=== PATIENT | male | born 1985 | race Caucasian/White ===

== ENCOUNTER 2016-07-14 08:42 | Emergency (ER) | payer SELFPAY ==
--- NOTE | ~2016-07-14 | ER ---
PATIENT'S NAME: RA CHRISTENSEN [facility] AGE: 30 Y [address] ROOM: [place] [id number] LOCATION: [facility] ADMIT DATE: 07/14/2016 ER/Outpatient Report DISCHARGE DATE: FAMILY PHYSICIAN: PHYSICIAN, NO ATTENDING PHYSICIAN: Zhang Thurman Time of Arrival: Time of Evaluation: Admission date and time documented in the medical record. I saw the patient at 0850 hours. CHIEF COMPLAINT: Cough, shortness of breath, and fever. HISTORY OF PRESENT ILLNESS: This patient is a 30-year-old male, who comes in with a 4 to 5-day history of increasing shortness of breath, fever, and congested productive cough. No chills or rigors. Sputum is yellowish. He has had some nausea with vomiting with coughing. Some diarrhea. No chest pain, abdominal pain, or back pain. No headache, eyes, ears, nose, or throat pain. No fall or trauma. No lightheadedness, dizziness, syncope, or near syncope. No joint or muscle swelling, redness, or pain. No skin eruptions or rash. No history of neurological changes, psychiatric issues, or endocrine problems. HOME MEDICATIONS: See attached medication list. ALLERGIES: CODEINE. SOCIAL HISTORY: The patient smokes a pack a day. Occasional intake of alcohol. SIGNIFICANT PAST MEDICAL HISTORY: 1. Herpes. 2. Tobacco abuse. 3. Manic depression. 4. Bronchitis. PAST SURGICAL HISTORY: Operations: None. REVIEW OF SYSTEMS: All systems reviewed by me are negative with the exception of those discussed in the History of the Present Illness. PATIENT'S NAME: RA CHRISTENSEN [facility] AGE: 30 Y [address] ROOM: [place] [id number] LOCATION: [facility] ADMIT DATE: 07/14/2016 ER/Outpatient Report DISCHARGE DATE: FAMILY PHYSICIAN: PHYSICIAN, NO ATTENDING PHYSICIAN: Zhang Thurman PHYSICAL EXAMINATION: VITAL SIGNS: Temperature 97.4, tympanic; pulse 80; respiratory rate 22; blood pressure 145/85; and O2 saturation on room air is 95%. HEENT: Head; normocephalic. Eyes; extraocular muscles intact. PERRL. Ears; clear TMs bilaterally. Nose; congested. Throat; clear. Mucous membranes moist. NECK: No nuchal rigidity. No thyromegaly or cervical lymphadenopathy. No tenderness. SPINE: Nontender. No deformity. LUNGS: Decreased breath sounds diffusely. Expiratory wheezes. Scattered rhonchi. HEART: Regular. Pulses are palpable. ABDOMEN: Soft, mildly obese, nondistended, and nontender. Good bowel tones. No organomegaly or abnormal mass palpable. No CVA tenderness. EXTREMITIES: Without peripheral edema, cyanosis, or deformity. NEUROLOGIC: Neurovascularly intact. SKIN: Clear. IMAGING STUDIES: Chest x-ray shows no acute infiltrate. There was a nodule present. We did do a CT scan of the chest that showed granulomatous calcified nodule. No evidence of tumor. He does have some airway changes consistent with pneumonia. CT scan was read by Radiology, as was the chest x-ray. LABORATORY DATA: White count is 14,800, 78 segs, 3 bands, 11 lymphs, 8 monos, hemoglobin is 15.8 with a hematocrit of 45.5, and platelet count was 200,000. EMERGENCY DEPARTMENT COURSE: I did give the patient 1 L normal saline IV in the emergency room. Gave him Rocephin 2 g IV in the emergency room. IMPRESSION: Pneumonia with productive cough, fever, and shortness of breath. PLAN: The patient dismissed to home. Observation. Activity as tolerated. Fluids, diet as tolerated. Z-Regulo take as directed. Mucinex D 600 mg 2 orally 2 times a day for 10 days. Albuterol oral inhaler 2 puffs 4 times a day. Follow up with personal physician in 7 to 10 days or sooner if needed. ZHANG THURMAN MD PATIENT'S NAME: RA CHRISTENSEN [facility] AGE: 30 Y [address] ROOM: [place] [id number] LOCATION: ED ADMIT DATE: 07/14/2016 ER/Outpatient Report DISCHARGE DATE: FAMILY PHYSICIAN: PHYSICIAN, NO ATTENDING PHYSICIAN: Zhang Thurman/pratibhal /[id number] d: 07/14/16 1107 t: 07/15/16 0608, OUTPATIENT REPORT
[2016-07-14 09:24] LABS: HEMATOCRIT 45.5 % (37.0-53.0); HEMOGLOBIN 15.8 g/dL (12.0-17.0); MCH 31.3 pg (27.0-34.0); MCHC 34.7 gm/dL (32.0-36.5); MCV 90.1 fl (83.0-98.0); MPV 9.7 fl (9.4-12.4); PLATELET COUNT 200 K/uL (150-450); RBC 5.05 M/uL (4.00-6.00); RDW-CV 12.5 % (11.9-14.6); WBC 14.8 K/uL (4.0-11.0)
[2016-07-14 09:58] LABS: BANDED NEUTROPHIL # 0.4 K/uL (0.0-0.1); BANDED NEUTROPHILS % 3 %; LYMPHOCYTE # 1.6 K/uL (0.8-4.0); LYMPHOCYTE % 11 %; MONOCYTE # 1.2 K/uL (0.0-1.0); SEGMENTED NEUTROPHIL # 11.5 K/uL (1.4-9.0); SEGMENTED NEUTROPHIL % 78 %
== END 2016-07-14 11:46 | disposition disaster alternative care site (69) ==
LOC: GMED 08:42
PROVIDERS: Emergency Medicine
DX: J18.9 Pneumonia, unspecified organism (principal); F17.210 Nicotine dependence, cigarettes, uncomplicated; F33.9 Major depressive disorder, recurrent, unspecified; Z79.899 Other long term (current) drug therapy
CPT/HCPCS: J0696; J7030; Q9967